=== PATIENT | male | born 1995 ===

== ENCOUNTER 2020-12-16 23:50 | Emergency (ER) | payer SELFPAY ==
[2020-12-17] MEDS ORDERED: HYDROcodone/ACETAMINOPHEN 5-325 MG TAB PO ONE (02:18)
--- NOTE | 2020-12-17 03:13 | XRay Report ---
XR chest routine 2V INDICATION / CLINICAL INFORMATION: Trauma FOLLOWED BY [facility] THIS AM COMPARISON: None available. FINDINGS: SUPPORT DEVICES: None. HEART / MEDIASTINUM: No significant abnormality. LUNGS / PLEURA: Lungs are clear. Costophrenic sulci are sharp. No pneumothorax. ADDITIONAL FINDINGS: No significant additional findings. IMPRESSION: 1. No acute findings. Signer Name: Jonny Steele MD Signed: 12/17/2020 3:09 AM Workstation Name: [id number]
--- NOTE | 2020-12-19 17:42 | Electrocardiograph Report ---
[facility] Test Date: 2020-12-17 Test Time: 02:00:56 Pat Name: REYNA DELGADILLO Department: Room: Gender: M [employer]: BAIRON : 1995 Requested By: JENNIE NICHOLSON Order Number: [id number] Reading MD: Brandon Collins Measurements Intervals [place] Rate: 57 P: 41 SC: 166 QRS: 85 QRSD: 83 T: 44 QT: 391 QTc: 381 Interpretive Statements Sinus bradycardia ST elev, probable normal early repol pattern No previous ECG available for comparison Electronically Signed On 12-19-2020 17:41:36 EDT by Brandon Collins
== END 2020-12-17 08:05 ==
LOC: ED 23:50
DX: R07.9 Chest pain, unspecified (principal); Z53.21 Procedure and treatment not carried out due to patient leaving prior to being seen by health care provider
CPT/HCPCS: 71046; 93005